=== PATIENT | female | born 1965 | race African-American/Black ===

== ENCOUNTER 2020-01-06 14:21 | Emergency (ER) | payer MEDICAID ==
[~2020-01-06] VITALS: Ht 165.1 cm; Wt 72.7 kg
[2020-01-06] MEDS ORDERED: ACETAMINOPHEN WITH CODEINE 300/30MG TABLET PO ONE (16:15)
[2020-01-06 17:22] VITALS: BP 135/80
== END 2020-01-06 17:23 | disposition home or self-care (01) ==
LOC: ER 14:21
DX: S93.401A Sprain of unspecified ligament of right ankle, initial encounter (principal); Z98.890 Other specified postprocedural states; W10.8XXA Fall (on) (from) other stairs and steps, initial encounter; Y93.89 Activity, other specified; Y92.018 Other place in single-family (private) house as the place of occurrence of the external cause
CPT/HCPCS: 73610; 73630; 99284